=== PATIENT | male | born 1960 | race Caucasian/White ===

== ENCOUNTER 2020-07-21 10:22 | Inpatient (IN) | payer SELFPAY ==
[2020-07-21] VITALS (10 sets, daily range): BP systolic 122–178; BP diastolic 64–86
[~2020-07-21] VITALS: Ht 185.4 cm; Wt 97.0 kg
--- NOTE | 2020-07-21 11:13 | RAD ---
XR CHEST 1V INDICATION: hemoptysis/cough COMPARISON STUDY: None. FINDINGS: Lungs: Normal lung volume. Mild ill-defined right lung opacities. The tracheobronchial tree and hilar structures are normal. Pleura: No pleural effusion or pneumothorax. Heart and Mediastinum: The cardiomediastinal silhouette is normal. The great vessels of the thorax ar e normal. Bones and Soft Tissues: The bones and soft tissues are within normal limits. IMPRESSION: Mild ill-defined right lung opacities, possibly an infectious/inflammatory process. Electronically signed by: Khang Boyd MD (07/21/2020 11:10 AM) [id number]
[2020-07-21] MEDS ORDERED: AZITHRMYCN 500MG IVPB FOR OMNI 250 ML IV ONE (11:30)
[2020-07-21] MEDS ORDERED: DEXAMETHASONE SOD PHOS 20 MG/5 ML VIAL. IV ONE (11:30)
[2020-07-21] MEDS ORDERED: cefTRIAXone IV Push 1 GM VIAL. IVP ONE (11:30)
[2020-07-21] MEDS ORDERED: IV NORMAL SALINE 1000ML BAG 1,000 ML IV ONE (11:30)
[2020-07-21 11:36] LABS: BASO # 0.1 x10^3/uL (0.0-0.2); BASO % 1 % (0-3); EOS # 0.2 x10^3/uL (0.0-0.7); EOS % 2 % (0-3); HEMATOCRIT 47.2 % (39.0-53.0); LYMPH # 1.4 x10^3/uL (1.0-4.8); LYMPH % 15 % (24-48); MEAN CORPUSCULAR HEMOGLOBIN 31 pg (25-35); MEAN CORPUSCULAR HGB CONC 34 g/dL (31-37); MEAN CORPUSCULAR VOLUME 90 fL (79-100); MONO # 0.7 x10^3/uL (0.0-1.1); MONO % 7 % (0-9); NEUT % 74 % (31-73); PLATELET COUNT 140 x10^3/uL (140-400); RED BLOOD COUNT 5.24 x10^6/uL (4.30-5.70); RED CELL DISTRIBUTION WIDTH 13.2 % (11.5-14.5); WHITE BLOOD COUNT 9.4 x10^3/uL (4.0-11.0)
[2020-07-21 11:47] LABS: CREATININE 1.6 mg/dL (0.7-1.3); GFR 44.5; POTASSIUM 3.8 mmol/L (3.5-5.1)
[2020-07-21 11:55] LABS: ALBUMIN 3.4 g/dL (3.4-5.0); ALBUMIN/GLOBULIN RATIO 0.9 (1.0-1.7); MAGNESIUM 2.4 mg/dL (1.8-2.4); TOTAL BILIRUBIN 0.7 mg/dL (0.2-1.0); TOTAL PROTEIN 7.4 g/dL (6.4-8.2)
[2020-07-21 12:19] LABS: AMPHETAMINE/METHAMPHETAMINE NEG (NEG); BARBITURATES NEG (NEG); BENZODIAZEPINES NEG (NEG); CANNABINOIDS NEG (NEG); COCAINE NEG (NEG); METHADONE NEG (NEG); OPIATES NEG (NEG); PHENCYCLIDINE NEG (NEG)
--- NOTE | 2020-07-21 12:56 | EKG ---
[facility] [address] [place] [address] Test Date: 2020-07-21 Test Time: 10:49:20 Pat Name: DIONNE SANTIAGO Department: Room: Gender: M Senior Graphic Designer: : 1960 Requested By: JOSE FRANCISCO REYNOLDS Order Number: [id number] Reading MD: Measurements Intervals [place] Rate: 93 P: 263 NH: 130 QRS: -1 QRSD: 96 T: 131 QT: 362 QTc: 453 Interpretive Statements SINUS RHYTHM LEFT ATRIAL ABNORMALITY LEFTWARD AXIS QRS(T) CONTOUR ABNORMALITY CONSIDER ANTEROSEPTAL MYOCARDIAL DAMAGE ST & T ABNORMALITY, CONSIDER LATERAL ISCHEMIA OR LEFT VENTRICULAR STRAIN ABNORMAL ECG RI6.02 No previous ECG available for comparison
[2020-07-21] MEDS ORDERED: IOHEXOL 350 MG/ML 100 ML VIAL. IV ONE (13:45)
[2020-07-21] MEDS ORDERED: CONTRAST GIVEN. MC PRN (13:45)
[2020-07-21] MEDS ORDERED: niCARdipine 50 MG in IV NORMAL SALINE 250ML 250 ML IV PRN (13:45)
--- NOTE | 2020-07-21 13:48 | PHYS DOC ---
Past Medical History Past Medical History: No Pertinent History Past Surgical History: Other Additional Past Surgical Histo: L shoulder Smoking Status: Current Every Day Smoker Alcohol Use: Occasionally General Adult EDM: Chief Complaint: COUGH HPI: HPI: 60 yo M who denies any PMH, presents to the ED with complaints of forceful episodes of a dry cough that proceed to shortness of breath and hemoptysis only after he has been coughing multiple times. At rest denies any shortness of breath. Takes no routine medications, on no AC. Has no PCP. Smokes tobacco but has not been formally diagnosed with emphysema. Denies any fever, headache, lethargy, fatigue, sore throat, nausea or vomiting. Requests to be Covid tested "so I can go back to work." Review of Systems: Review of Systems: Constitutional: Denies fever or chills. [] Eyes: Denies change in visual acuity. [] HENT: Denies nasal congestion or sore throat. [] Respiratory: Denies rhinorrhea or sternal retractions Cardiovascular: Denies chest pain or edema. [] GI: Denies abdominal pain, nausea, vomiting, bloody stools or diarrhea. [] : Denies dysuria. [] Musculoskeletal: Denies back pain or joint pain. [] Integument: Denies rash. [] Neurologic: Denies headache, focal weakness or sensory changes. [] Endocrine: Denies polyuria or polydipsia. [] Lymphatic: Denies swollen glands. [] Psychiatric: Denies depression or anxiety. [] Heart Score: Risk Factors: Risk Factors: DM, Current or recent (<one month) smoker, HTN, HLP, family history of CAD, obesity. Risk Scores: Score 0 - 3: 2.5% MACE over next 6 weeks - Discharge Home Score 4 - 6: 20.3% MACE over next 6 weeks - Admit for Clinical Observation Score 7 - 10: 72.7% MACE over next 6 weeks - Early Invasive Strategies Current Medications: Current Medications Medications (Trade) Dose Ordered Sig/Marry Start Time Stop Time Status Last Admin Dose Admin Azithromycin 250 ml @ 250 mls/hr 1X ONCE 07/21/20 11:30 07/21/20 12:29 DC 07/21/20 11:54 250 MLS/HR Ceftriaxone Sodium (Rocephin) 1 gm 1X ONCE 07/21/20 11:30 07/21/20 11:34 DC 07/21/20 11:47 1 GM Dexamethasone Sodium Phosphate (Decadron) 10 mg 1X ONCE 07/21/20 11:30 07/21/20 11:34 DC 07/21/20 11:47 10 MG Info (CONTRAST GIVEN -- Rx MONITORING) 1 each PRN DAILY PRN 07/21/20 13:45 07/23/20 13:44 Iohexol (Omnipaque 350 Mg/ml) 80 ml 1X ONCE 07/21/20 13:45 07/21/20 13:46 Nicardipine HCl 50 mg/Sodium Chloride 250 ml @ 12.5 mls/hr CONT PRN 07/21/20 13:45 07/22/20 13:44 Sodium Chloride 1,000 ml @ 1,000 mls/hr 1X ONCE 07/21/20 11:30 07/21/20 12:29 DC 07/21/20 11:47 1,000 MLS/HR Allergies: Allergies: Allergies Coded Allergies Type Severity Reaction Last Updated Verified No Known Drug Allergies 07/21/20 No Physical Exam: PE: Constitutional: Well developed, well nourished, no acute distress, non-toxic appearance, hypertensive HENT: Normocephalic, atraumatic, Eyes: EOMI, conjunctiva normal, no discharge. Neck: Normal range of motion, supple, Cardiovascular: S1/2 present, regular rhythm Lungs & Thorax: Speaking in full sentences, bilateral equal chest rise, no tachypnea or increased work of breathing, no wheezing/rales/crackles, clear lungs auscultated bilaterally Abdomen: soft, no tenderness, Skin: Warm, dry, no erythema, no rash. [] Extremities: No tenderness, no cyanosis, no lower extremity edema Neurologic: Alert and oriented X 3, normal motor function, normal sensory function, no focal deficits noted. [] Psychologic: Affect normal, judgement normal, mood normal. [] Current Patient Data: Labs: Laboratory Tests Test 07/21/20 11:21 07/21/20 12:00 White Blood Count 9.4 x10^3/uL (4.0-11.0) Red Blood Count 5.24 x10^6/uL (4.30-5.70) Hemoglobin 16.0 g/dL (13.0-17.5) Hematocrit 47.2 % (39.0-53.0) Mean Corpuscular Volume 90 fL (79-100) Mean Corpuscular Hemoglobin 31 pg (25-35) Mean Corpuscular Hemoglobin Concent 34 g/dL (31-37) Red Cell Distribution Width 13.2 % (11.5-14.5) Platelet Count 140 x10^3/uL (140-400) Neutrophils (%) (Auto) 74 % (31-73) H Lymphocytes (%) (Auto) 15 % (24-48) L Monocytes (%) (Auto) 7 % (0-9) Eosinophils (%) (Auto) 2 % (0-3) Basophils (%) (Auto) 1 % (0-3) Neutrophils # (Auto) 7.0 x10^3/uL (1.8-7.7) Lymphocytes # (Auto) 1.4 x10^3/uL (1.0-4.8) Monocytes # (Auto) 0.7 x10^3/uL (0.0-1.1) Eosinophils # (Auto) 0.2 x10^3/uL (0.0-0.7) Basophils # (Auto) 0.1 x10^3/uL (0.0-0.2) D-Dimer (Pretty) 0.53 ug/mlFEU (0.00-0.50) H Sodium Level 138 mmol/L (136-145) Potassium Level 3.8 mmol/L (3.5-5.1) Chloride Level 103 mmol/L (98-107) Carbon Dioxide Level 25 mmol/L (21-32) Anion Gap 10 (6-14) Blood Urea Nitrogen 14 mg/dL (8-26) Creatinine 1.6 mg/dL (0.7-1.3) H Estimated GFR (Cockcroft-Gault) 44.5 BUN/Creatinine Ratio 9 (6-20) Glucose Level 131 mg/dL (70-99) H Lactic Acid Level 1.0 mmol/L (0.4-2.0) Calcium Level 9.0 mg/dL (8.5-10.1) Magnesium Level 2.4 mg/dL (1.8-2.4) Total Bilirubin 0.7 mg/dL (0.2-1.0) Aspartate Amino Transferase (AST) 14 U/L (15-37) L Alanine Aminotransferase (ALT) 20 U/L (16-63) Alkaline Phosphatase 101 U/L (46-116) Troponin I Quantitative 0.024 ng/mL (0.000-0.055) Total Protein 7.4 g/dL (6.4-8.2) Albumin 3.4 g/dL (3.4-5.0) Albumin/Globulin Ratio 0.9 (1.0-1.7) L Urine Opiates Screen Neg (NEG) Urine Methadone Screen Neg (NEG) Urine Barbiturates Neg (NEG) Urine Phencyclidine Screen Neg (NEG) Urine Amphetamine/Methamphetamine Neg (NEG) Urine Benzodiazepines Screen Neg (NEG) Urine Cocaine Screen Neg (NEG) Urine Cannabinoids Screen Neg (NEG) Urine Ethyl Alcohol Neg (NEG) Laboratory Tests 07/21/20 11:21 Laboratory Tests 07/21/20 11:21 Vital Signs: Vital Signs Date Time Temp Pulse Resp B/P (MAP) Pulse Ox O2 Delivery O2 Flow Rate FiO2 07/21/20 12:40 94 24 168/114 (132) 95 Room Air 07/21/20 10:25 97.9 97.9 EKG: EKG: Sinus rhythm 93 bpm, left axis deviation, T wave inversion 1 and aVL, normal intervals, no ST elevations or ST depressions Radiology/Procedures: Radiology/Procedures: IMAGING REPORT Signed PATIENT: DIONNE SANTIAGO ACCOUNT: [id number] : 1960 LOCATION: ER AGE: 60 SEX: M EXAM STATUS: PRE ER ORD. PHYSICIAN: MARISOL REYNOLDS DO REASON: hemoptysis/cough PROCEDURE: PORTABLE CHEST 1V XR CHEST 1V INDICATION: hemoptysis/cough COMPARISON STUDY: None. FINDINGS: Lungs: Normal lung volume. Mild ill-defined right lung opacities. The tracheobronchial tree and hilar structures are normal. Pleura: No pleural effusion or pneumothorax. Heart and Mediastinum: The cardiomediastinal silhouette is normal. The great vessels of the thorax are normal. Bones and Soft Tissues: The bones and soft tissues are within normal limits. IMPRESSION: Mild ill-defined right lung opacities, possibly an infectious/inflammatory process. Electronically signed by: Gavin Boyd MD (07/21/2020 11:10 AM) [id number] DICTATED and SIGNED BY: GAVIN BOYD MD DATE: 07/21/20 [id number] IMAGING REPORT Signed PATIENT: DIONNE SANTIAGO ACCOUNT: [id number] : 1960 LOCATION: ER AGE: 60 SEX: M EXAM STATUS: REG ER ORD. PHYSICIAN: MARISOL REYNOLDS DO REASON: Cough, SOA, R/O PE PROCEDURE: CT ANGIOGRAPHY CHEST CTA CHEST INDICATION: Cough, SOA, R/O PE Comparison: Radiograph 07/21/2020. TECHNIQUE: Following the uneventful administration of intravenous contrast, 80 cc Omnipaque 350, axial CT sections were obtained through the lungs and upper abdomen. Multiplanar reconstructions and MIP images were obtained. PQRS compliance statement: One or more of the following individualized dose reduction techniques were utilized for this examination: 1. Automated exposure control 2. Adjustment of the mA and/or kV according to patient size 3. Use of iterative reconstruction technique FINDINGS: Pulmonary arteries: No evidence of pulmonary thromboembolic disease. Dilated pulmonary trunk measures 36 mm, which can be seen with pulmonary hypertension. Lungs and Airways: Mild ill-defined ground glass opacities. Right lower lobe 12 x 11 mm nodule with fat attenuation. Bilateral interlobular septal thickening. Calcified pulmonary granulomas. Bronchial wall thickening. Pleura: The pleural spaces are normal. Heart and Mediastinum: The visualized thyroid is normal in size and attenuation. No axillary or supraclavicular lymphadenopathy. Few conspicuous mediastinal and hilar lymph nodes. Cardiomegaly. No pericardial effusion. Coronary artery atherosclerotic disease. The great vessels of the thorax are normal. Abdomen: Limited images through the upper abdomen show no abnormality of the visualized organs. Bones and Soft Tissues: Degenerative changes of the spine. IMPRESSION: 1. No evidence of pulmonary thromboembolic disease. 2. Bilateral interlobular septal thickening and mild ill-defined across opacities, likely interstitial edema. 3. Dilated pulmonary trunk, which can be seen with pulmonary hypertension. 4. Right lower lobe 12 mm nodule has areas of fat attenuation, suggestive of a pulmonary hamartoma. Recommend comparison with prior imaging if available, or three-month follow-up CT to assess stability. 5. Coronary artery atherosclerotic disease. Electronically signed by: Gavin Boyd MD (07/21/2020 2:11 PM) [id number] DICTATED and SIGNED BY: GAVIN BOYD MD DATE: 07/21/20 [id number] Course & Med Decision Making: Course & Med Decision Making Pertinent Labs and Imaging studies reviewed. (See chart for details) COVID-19 CRITERIA: The patient was evaluated during the global COVID-19 pandemic, and that diagnosis was suspected/considered upon their initial presentation. Their evaluation, treatment and testing was consistent with current guidelines for patients who present with complaints or symptoms that may be related to COVID-19. Concern for symptomatic hypertension and renal insufficiency, creatinine is 1.6 with no prior for comparison. Started on nicardipine drip -requires ICU. CTA of the chest consistent with groundglass opacities. Covid test pending. CTA of the chest showing pulmonary hypertension. Patient requiring nasal cannula. Patient stable at time of admission and agrees with this plan. I have spoken with the patient and/or caregivers. I have explained the patient's condition, diagnosis and treatment plan based on the information av ailable to me at this time. I have answered the patient's and/or caregivers questions and answered any concerns. The patient and/or caregivers have as good an understanding of the patient's diagnosis, condition and treatment plan as can be expected at this point. The patient has been stabilized within the capability of the emergency department. The patient will be transported for further care and management or will be moved to an observation or inpatient service. I have communicated with the staff or medical practitioner taking over this patient's care. Critical Care: Authorized and Performed by: Marisol Reynolds DO Total critical care time: approximately 60 minutes Due to a high probability of clinically significant, life threatening deterioration, the patient required my highest level of preparedness to intervene emergently and I personally spent this critical care time directly and personally managing the patient. This critical care time included obtaining a history; examining the patient; pulse oximetry; ventilator management if necessary; ordering and review of studies; arranging urgent treatment with development of a management plan; evaluation of patient's response to treatment; frequent reassessment; discussion with patient/family; and, discussions with other providers. This critical care time was performed to assess and manage the high probability of imminent, life-threatening deterioration that could result in multi-organ failure. It was exclusive of separately billable procedures and treating other patients and teaching time. Please see MDM section and the rest of the note for further information on patient assessment and treatment. Devaughn Disclaimer: Devaughn Disclaimer: This electronic medical record was generated, in whole or in part, using a voice recognition dictation system. Departure Departure Impression: Primary Impression: Uncontrolled hypertension Additional Impressions: Renal insufficiency Person under investigation for COVID-19 Disposition: ADMITTED INPT THIS HOSP Admitting Physician: ZEKE (Dr. Arroyo) Condition: CRITICAL Referrals: NO PCP (PCP) MARISOL REYNOLDS DO Jul 21, 2020 13:47
[2020-07-21] MEDS ORDERED: ONDANSETRON PF 4 MG/2 ML VIAL. IV PRN (14:00)
--- NOTE | 2020-07-21 14:13 | RAD ---
CTA CHEST INDICATION: Cough, SOA, R/O PE Comparison: Radiograph 07/21/2020. TECHNIQUE: Following the uneventful administration of intravenous contrast, 80 cc Omnipaque 350, axia l CT sections were obtained through the lungs and upper abdomen. Multiplanar reconstructions and MIP images were obtained. PQRS compliance statement: One or more of the following individualized dose reduction techniques were utilized for this examinat ion: 1. Automated exposure control 2. Adjustment of the mA and/or kV according to patient size 3. Use of iterative reconstruction technique FINDINGS: Pulmonary arteries: No evidence of pulmonary thromboembolic disease. Dilated pulmonary trunk measures 36 mm, which can be seen with pulmonary hypertension. Lungs and Airways: Mild ill-defined ground glass opacities. Right lower lobe 12 x 11 mm nodule with f at attenuation. Bilateral interlobular septal thickening. Calcified pulmonary granulomas. Bronchial w all thickening. Pleura: The pleural spaces are normal. Heart and Mediastinum: The visualized thyroid is normal in size and attenuation. No axillary or supra clavicular lymphadenopathy. Few conspicuous mediastinal and hilar lymph nodes. Cardiomegaly. No peric ardial effusion. Coronary artery atherosclerotic disease. The great vessels of the thorax are normal. Abdomen: Limited images through the upper abdomen show no abnormality of the visualized organs. Bones and Soft Tissues: Degenerative changes of the spine. IMPRESSION: 1. No evidence of pulmonary thromboembolic disease. 2. Bilateral interlobular septal thickening and mild ill-defined across opacities, likely interstitia l edema. 3. Dilated pulmonary trunk, which can be seen with pulmonary hypertension. 4. Right lower lobe 12 mm nodule has areas of fat attenuation, suggestive of a pulmonary hamartoma. R ecommend comparison with prior imaging if available, or three-month follow-up CT to assess stability. 5. Coronary artery atherosclerotic disease. Electronically signed by: Khang Boyd MD (07/21/2020 2:11 PM) [id number]
--- NOTE | 2020-07-21 14:23 | HP ---
ADMIT DATE: 07/21/2020 CHIEF COMPLAINT: Elevated blood pressures, cough and shortness of breath. HISTORY OF PRESENT ILLNESS: The patient is a pleasant middle-aged male, who presented with elevated blood pressure. Pressures run at 191/123. He also has a bump in his creatinine to 1.6. He has a shortness of breath and cough. I discussed the case with ER physician. We are going to admit the patient and get his pressures down and checking for COVID-19. PAST MEDICAL HISTORY: Noncompliance and hypertension. ALLERGIES: None. FAMILY HISTORY: Diabetes. SOCIAL HISTORY: He works, does not do drugs. MEDICATIONS: Reviewed, please for the MRAD. REVIEW OF SYSTEMS: GENERAL: He complains of elevated blood pressure. SKIN: No bruising, hair changes or rashes. EYES: No blurred, double or loss of vision. NOSE AND THROAT: No history of nosebleeds, hoarseness or sore throat. HEART: No history of palpitations, chest pain or shortness of breath on exertion. LUNGS: He complaints of shortness of breath and cough. GASTROINTESTINAL: Denies changes in appetite, nausea, vomiting, diarrhea or constipation. GENITOURINARY: No history of frequency, urgency, hesitancy or nocturia. NEUROLOGIC: Denies history of numbness, tingling, tremor or weakness. PSYCHIATRIC: No history of panic, anxiety or depression. ENDOCRINE: No history of heat or cold intolerance, polyuria or polydipsia. EXTREMITIES: Denies muscle weakness, joint pain, pain on walking or stiffness. PHYSICAL EXAMINATION: VITAL SIGNS: Temperature 97.9, pulse 93, respirations 24, blood pressure 191/123, O2 sat 96% on room air. GENERAL: No apparent distress. Alert and oriented. HEENT: Normal cephalic atraumatic, external auditory canals are patent EYES: Extraocular muscles are intact, pupils are equally round and reactive to light and accommodation MUSCULOSKELETAL: Well developed, well nourished, good range of motion ENDOCRINE: No thyromegaly was palpated LYMPHATICS: No cervical chain or axillary nodes were noted HEMATOPOIETIC: No bruising NECK: Supple, no JVD, no thyromegaly was noted. LUNGS: Clear to auscultation in all lung bunch without rhonchi or wheezing. HEART: RRR, S1, S2 present. Peripheral pulses intact, no obvious murmurs were noted. ABDOMEN: Soft, nontender. Positive bowel sounds no organomegaly, normal bowel sounds. EXTREMITIES: Without any cyanosis, clubbing, or edema. Pedal pulses intact, Homans sign is negative. NEUROLOGIC: Normal speech, normal tone. A & O x3, moves all extremities, no obvious focal deficits. PSYCHIATRIC: Normal affect, normal mood. Stable. SKIN: No ulcerations or rashes, good skin turgor, no jaundice. VASCULAR: Good capillary refill, neurovascular bundle appears to be intact. LABORATORY DATA: White count is 9.4. Chest x-ray shows mild ill-defined right lung opacities, possibly infection. ASSESSMENT AND PLAN: Hypertensive emergency, acute renal failure, abnormal chest x-ray. The patient has been admitted. We will checking for COVID-19. We are going to use Cardene drip to get his pressures down. CT angiography of the chest to rule out PE. IV fluids, IV azithromycin, IV ceftriaxone, swab him for COVID-19. Trend labs, cardiac monitoring. CHIQUI GOMES DO DR: FITZ/jeanine JOB#: [id number] / [id number]
[2020-07-21] MEDS: METOPROLOL TART IMMED RELEASE 25 MG TABLET. PO SCH (17:42)
[2020-07-22] VITALS (11 sets, daily range): BP systolic 122–152; BP diastolic 76–99
[2020-07-22] MEDS: METOPROLOL TART IMMED RELEASE 25 MG TABLET. PO SCH (08:26)
--- NOTE | 2020-07-22 08:40 | PDOC ---
[employer] PROGRESS NOTE Date of Service DOS: DATE: 07/22/20 TIME: 08:40 Chief Complaint Chief Complaint A/P: HTN emergency Pulmonary hamartoma Shortness of breath REBA - vasomotor nephropathy History of Present Illness History of Present Illness Mr Holman is a 60yo M with no known PMHx who presented with elevated blood pressure. Pressures run at 191/123. He also has a bump in his creatinine to 1. 6. He has a shortness of breath and cough. I discussed the case with ER physician. We are going to admit the patient and get his pressures down and checking for COVID-19. Dust x-ray appeared to have a ill-defined right lower lobe infiltrate or mass. CTPA performed negative for PE but did note likely hamartoma in the right lower lobe. After dose of Rocephin and azithromycin and IV Cardene he improved significantly and is asking to go home. Transition to metoprolol and amlodipine with excellent control of blood pressure 141/89 will go home on antihypertensives doxycycline has outpatient follow-up. Vitals/I&O Vitals/I&O: Vital Signs Date Time Temp Pulse Resp B/P (MAP) Pulse Ox O2 Delivery O2 Flow Rate FiO2 07/22/20 08:31 Room Air 07/22/20 08:26 71 143/91 07/22/20 08:06 98.0 16 97 98.0 07/22/20 04:00 2.0 I & O 07/21/20 07/21/20 07/22/20 15:00 23:00 07:00 Intake Total 1250 ml 1000 ml 1661 ml Output Total 650 ml 700 ml Balance 600 ml 300 ml 1661 ml Physical Exam General: Alert, Oriented X3, Cooperative Heart: Regular rate, Normal S1, Normal S2 Lungs: Clear Abdomen: Normal bowel sounds, Soft Extremities: No clubbing, No cyanosis Skin: No rashes, No breakdown Labs Labs: Laboratory Tests Test 07/21/20 11:21 07/21/20 12:00 07/21/20 14:30 07/21/20 19:45 White Blood Count 9.4 x10^3/uL (4.0-11.0) Red Blood Count 5.24 x10^6/uL (4.30-5.70) Hemoglobin 16.0 g/dL (13.0-17.5) Hematocrit 47.2 % (39.0-53.0) Mean Corpuscular Volume 90 fL (79-100) Mean Corpuscular Hemoglobin 31 pg (25-35) Mean Corpuscular Hemoglobin Concent 34 g/dL (31-37) Red Cell Distribution Width 13.2 % (11.5-14.5) Platelet Count 140 x10^3/uL (140-400) Neutrophils (%) (Auto) 74 % (31-73) Lymphocytes (%) (Auto) 15 % (24-48) Monocytes (%) (Auto) 7 % (0-9) Eosinophils (%) (Auto) 2 % (0-3) Basophils (%) (Auto) 1 % (0-3) Neutrophils # (Auto) 7.0 x10^3/uL (1.8-7.7) Lymphocytes # (Auto) 1.4 x10^3/uL (1.0-4.8) Monocytes # (Auto) 0.7 x10^3/uL (0.0-1.1) Eosinophils # (Auto) 0.2 x10^3/uL (0.0-0.7) Basophils # (Auto) 0.1 x10^3/uL (0.0-0.2) D-Dimer (Pretty) 0.53 ug/mlFEU (0.00-0.50) Sodium Level 138 mmol/L (136-145) Potassium Level 3.8 mmol/L (3.5-5.1) Chloride Level 103 mmol/L (98-107) Carbon Dioxide Level 25 mmol/L (21-32) Anion Gap 10 (6-14) Blood Urea Nitrogen 14 mg/dL (8-26) Creatinine 1.6 mg/dL (0.7-1.3) Estimated GFR (Cockcroft-Gault) 44.5 BUN/Creatinine Ratio 9 (6-20) Glucose Level 131 mg/dL (70-99) Lactic Acid Level 1.0 mmol/L (0.4-2.0) Calcium Level 9.0 mg/dL (8.5-10.1) Magnesium Level 2.4 mg/dL (1.8-2.4) Total Bilirubin 0.7 mg/dL (0.2-1.0) Aspartate Amino Transf (AST/SGOT) 14 U/L (15-37) Alanine Aminotransferase (ALT/SGPT) 20 U/L (16-63) Alkaline Phosphatase 101 U/L (46-116) Troponin I Quantitative 0.024 ng/mL (0.000-0.055) < 0.017 ng/mL (0.000-0.055) 0.017 ng/mL (0.000-0.055) Total Protein 7.4 g/dL (6.4-8.2) Albumin 3.4 g/dL (3.4-5.0) Albumin/Globulin Ratio 0.9 (1.0-1.7) Urine Opiates Screen Neg (NEG) Urine Methadone Screen Neg (NEG) Urine Barbiturates Neg (NEG) Urine Phencyclidine Screen Neg (NEG) Urine Amphetamine/Methamphetamine Neg (NEG) Urine Benzodiazepines Screen Neg (NEG) Urine Cocaine Screen Neg (NEG) Urine Cannabinoids Screen Neg (NEG) Urine Ethyl Alcohol Neg (NEG) Assessment and Plan Assessmemt and Plan Problems Medical Problems: (1) Person under investigation for COVID-19 Status: Acute (2) Renal insufficiency Status: Acute (3) Uncontrolled hypertension Status: Acute Comment Review of Relevant I have reviewed the following items maximino (where applicable) has been applied. Medications: Current Medications Medications (Trade) Dose Ordered Sig/Marry Route PRN Reason Start Time Stop Time Status Last Admin Dose Admin Sodium Chloride 1,000 ml @ 1,000 mls/hr 1X ONCE IV 07/21/20 11:30 07/21/20 12:29 DC 07/21/20 11:47 Ceftriaxone Sodium (Rocephin) 1 gm 1X ONCE IVP 07/21/20 11:30 07/21/20 11:34 DC 07/21/20 11:47 Azithromycin 250 ml @ 250 mls/hr 1X ONCE IV 07/21/20 11:30 07/21/20 12:29 DC 07/21/20 11:54 Dexamethasone Sodium Phosphate (Decadron) 10 mg 1X ONCE IV 07/21/20 11:30 07/21/20 11:34 DC 07/21/20 11:47 Iohexol (Omnipaque 350 Mg/ml) 80 ml 1X ONCE IV 07/21/20 13:45 07/21/20 13:46 DC 07/21/20 13:52 Nicardipine HCl 50 mg/Sodium Chloride 250 ml @ 12.5 mls/hr CONT PRN IV SEE I/O RECORD 07/21/20 13:45 07/21/20 17:12 DC 07/21/20 13:45 Amlodipine Besylate (Norvasc) 10 mg DAILY PO 07/21/20 18:00 07/22/20 08:25 Metoprolol Tartrate (Lopressor) 25 mg BID PO 07/21/20 18:00 07/22/20 08:26 Justifications for Admission Other Justification JUAN R PADRON MD Jul 22, 2020 08:40
--- NOTE | 2020-07-22 09:47 | NUR ---
SS following for discharge planning. SS reviewed pt chart and discussed with RN. Pt is from home and is currently on room air. Self pay. Pt wanting to return to home. Possible discharge to home today. SS will continue to follow for discharge planning.
[2020-07-22] MEDS ORDERED: AMLO-187 PO (10:26)
[2020-07-22] MEDS ORDERED: METO25TA4 PO (10:26)
[2020-07-22] MEDS ORDERED: DOXY100T PO (10:34)
--- NOTE | 2020-07-22 10:35 | PDOC3 ---
Discharge Summary Visit Information Date of Admission: Jul 21, 2020 Date of Discharge: Jul 22, 2020 Admitting Diagnosis: Shortness of breath Final Diagnosis Problems Medical Problems: (1) Person under investigation for COVID-19 Status: Acute (2) Renal insufficiency Status: Acute (3) Uncontrolled hypertension Status: Acute Brief Hospital Course Allergies Allergies Coded Allergies Type Severity Reaction Last Updated Verified No Known Drug Allergies 07/21/20 No Vital Signs Vital Signs Date Time Temp Pulse Resp B/P (MAP) Pulse Ox O2 Delivery O2 Flow Rate FiO2 07/22/20 10:04 62 16 141/99 (113) 93 Room Air 07/22/20 08:06 98.0 98.0 07/22/20 04:00 2.0 Lab Results Laboratory Tests Test 07/21/20 11:21 07/21/20 12:00 07/21/20 14:30 07/21/20 19:45 White Blood Count 9.4 x10^3/uL (4.0-11.0) Red Blood Count 5.24 x10^6/uL (4.30-5.70) Hemoglobin 16.0 g/dL (13.0-17.5) Hematocrit 47.2 % (39.0-53.0) Mean Corpuscular Volume 90 fL (79-100) Mean Corpuscular Hemoglobin 31 pg (25-35) Mean Corpuscular Hemoglobin Concent 34 g/dL (31-37) Red Cell Distribution Width 13.2 % (11.5-14.5) Platelet Count 140 x10^3/uL (140-400) Neutrophils (%) (Auto) 74 % (31-73) Lymphocytes (%) (Auto) 15 % (24-48) Monocytes (%) (Auto) 7 % (0-9) Eosinophils (%) (Auto) 2 % (0-3) Basophils (%) (Auto) 1 % (0-3) Neutrophils # (Auto) 7.0 x10^3/uL (1.8-7.7) Lymphocytes # (Auto) 1.4 x10^3/uL (1.0-4.8) Monocytes # (Auto) 0.7 x10^3/uL (0.0-1.1) Eosinophils # (Auto) 0.2 x10^3/uL (0.0-0.7) Basophils # (Auto) 0.1 x10^3/uL (0.0-0.2) D-Dimer (Pretty) 0.53 ug/mlFEU (0.00-0.50) Sodium Level 138 mmol/L (136-145) Potassium Level 3.8 mmol/L (3.5-5.1) Chloride Level 103 mmol/L (98-107) Carbon Dioxide Level 25 mmol/L (21-32) Anion Gap 10 (6-14) Blood Urea Nitrogen 14 mg/dL (8-26) Creatinine 1.6 mg/dL (0.7-1.3) Estimated GFR (Cockcroft-Gault) 44.5 BUN/Creatinine Ratio 9 (6-20) Glucose Level 131 mg/dL (70-99) Lactic Acid Level 1.0 mmol/L (0.4-2.0) Calcium Level 9.0 mg/dL (8.5-10.1) Magnesium Level 2.4 mg/dL (1.8-2.4) Total Bilirubin 0.7 mg/dL (0.2-1.0) Aspartate Amino Transf (AST/SGOT) 14 U/L (15-37) Alanine Aminotransferase (ALT/SGPT) 20 U/L (16-63) Alkaline Phosphatase 101 U/L (46-116) Troponin I Quantitative 0.024 ng/mL (0.000-0.055) < 0.017 ng/mL (0.000-0.055) 0.017 ng/mL (0.000-0.055) Total Protein 7.4 g/dL (6.4-8.2) Albumin 3.4 g/dL (3.4-5.0) Albumin/Globulin Ratio 0.9 (1.0-1.7) Urine Opiates Screen Neg (NEG) Urine Methadone Screen Neg (NEG) Urine Barbiturates Neg (NEG) Urine Phencyclidine Screen Neg (NEG) Urine Amphetamine/Methamphetamine Neg (NEG) Urine Benzodiazepines Screen Neg (NEG) Urine Cocaine Screen Neg (NEG) Urine Cannabinoids Screen Neg (NEG) Urine Ethyl Alcohol Neg (NEG) Laboratory Tests Test 07/21/20 11:21 07/21/20 12:00 07/21/20 14:30 07/21/20 19:45 White Blood Count 9.4 x10^3/uL (4.0-11.0) Red Blood Count 5.24 x10^6/uL (4.30-5.70) Hemoglobin 16.0 g/dL (13.0-17.5) Hematocrit 47.2 % (39.0-53.0) Mean Corpuscular Volume 90 fL (79-100) Mean Corpuscular Hemoglobin 31 pg (25-35) Mean Corpuscular Hemoglobin Concent 34 g/dL (31-37) Red Cell Distribution Width 13.2 % (11.5-14.5) Platelet Count 140 x10^3/uL (140-400) Neutrophils (%) (Auto) 74 % (31-73) Lymphocytes (%) (Auto) 15 % (24-48) Monocytes (%) (Auto) 7 % (0-9) Eosinophils (%) (Auto) 2 % (0-3) Basophils (%) (Auto) 1 % (0-3) Neutrophils # (Auto) 7.0 x10^3/uL (1.8-7.7) Lymphocytes # (Auto) 1.4 x10^3/uL (1.0-4.8) Monocytes # (Auto) 0.7 x10^3/uL (0.0-1.1) Eosinophils # (Auto) 0.2 x10^3/uL (0.0-0.7) Basophils # (Auto) 0.1 x10^3/uL (0.0-0.2) D-Dimer (Pretty) 0.53 ug/mlFEU (0.00-0.50) Sodium Level 138 mmol/L (136-145) Potassium Level 3.8 mmol/L (3.5-5.1) Chloride Level 103 mmol/L (98-107) Carbon Dioxide Level 25 mmol/L (21-32) Anion Gap 10 (6-14) Blood Urea Nitrogen 14 mg/dL (8-26) Creatinine 1.6 mg/dL (0.7-1.3) Estimated GFR (Cockcroft-Gault) 44.5 BUN/Creatinine Ratio 9 (6-20) Glucose Level 131 mg/dL (70-99) Lactic Acid Level 1.0 mmol/L (0.4-2.0) Calcium Level 9.0 mg/dL (8.5-10.1) Magnesium Level 2.4 mg/dL (1.8-2.4) Total Bilirubin 0.7 mg/dL (0.2-1.0) Aspartate Amino Transf (AST/SGOT) 14 U/L (15-37) Alanine Aminotransferase (ALT/SGPT) 20 U/L (16-63) Alkaline Phosphatase 101 U/L (46-116) Troponin I Quantitative 0.024 ng/mL (0.000-0.055) < 0.017 ng/mL (0.000-0.055) 0.017 ng/mL (0.000-0.055) Total Protein 7.4 g/dL (6.4-8.2) Albumin 3.4 g/dL (3.4-5.0) Albumin/Globulin Ratio 0.9 (1.0-1.7) Urine Opiates Screen Neg (NEG) Urine Methadone Screen Neg (NEG) Urine Barbiturates Neg (NEG) Urine Phencyclidine Screen Neg (NEG) Urine Amphetamine/Methamphetamine Neg (NEG) Urine Benzodiazepines Screen Neg (NEG) Urine Cocaine Screen Neg (NEG) Urine Cannabinoids Screen Neg (NEG) Urine Ethyl Alcohol Neg (NEG) Brief Hospital Course Mr Holman is a 60yo M with no known PMHx who presented with elevated blood pressure. Pressures run at 191/123. He also has a bump in his creatinine to 1.6. He has a shortness of breath and cough. I discussed the case with ER physician. We are going to admit the patient and get his pressures down and checking for COVID-19. Dust x-ray appeared to have a ill-defined right lower lobe infiltrate or mass. CTPA performed negative for PE but did note likely hamartoma in the right lower lobe. After dose of Rocephin and azithromycin and IV Cardene he improved significantly and is asking to go home. Transition to metoprolol and amlodipine with excellent control of blood pressure 141/89 will go home on antihypertensives doxycycline has outpatient follow-up. Problem list: HTN emergency Pulmonary hamartoma Shortness of breath - bronchitis and HTN emergency REBA - vasomotor nephropathy Greater than 30 minutes spent on d/c home with self care Discharge Information Condition at Discharge: Improved Follow Up: Weeks (1) Disposition/Orders: D/C to Home Scheduled Amlodipine Besylate (Amlodipine Besylate) 10 Mg Tablet, 10 MG PO DAILY for HTN for 30 Days, #30 Ref 4 Prescribed by: JUAN R PADRON MD on 07/22/20 1026 Doxycycline Hyclate (Doxycycline Hyclate) 100 Mg Tablet, 1 TAB PO BID for Bronchitis for 5 Days, #10 Prescribed by: JUAN R PADRON MD on 07/22/20 1034 Metoprolol Tartrate (Metoprolol Tartrate) 25 Mg Tablet, 25 MG PO BID for HTN for 30 Days, #60 Ref 4 Prescribed by: JUAN R PADRON MD on 07/22/20 1026 Justicifation of Admission Dx: Justifications for Admission: Justification of Admission Dx: Yes JUAN R PADRON MD Jul 22, 2020 10:35
--- NOTE | 2020-07-22 11:45 | NUR ---
Discharge Note: [facility] Discharge instructions and discharge home medications reviewed with Patient and a copy given. All questions have been answered and understanding verbalized. The following instructions and handouts were given: Follow up with Primary Care Provider with 2 weeks. Education pertaining to HTN, metoprolol and amlodipine were discussed and given to patient. Discontinued lines and drains: 18g L AC and wrist was removed with tip intact. Patient discharged to home with self care. Patient drove himself from [facility] facility.
--- NOTE | 2020-07-22 17:47 | NUR ---
Called patient's home Number [phone] to inform him his COVID test was negative. Could not leave message on voice mail due to it was full.
== END 2020-07-22 11:51 | disposition home or self-care (01) | DRG 304 ==
LOC: ER 10:22 → 1 WEST ICU 15:02
PROVIDERS: ADMIT Internal Medicine; ATTEND Internal Medicine
DX: I16.1 Hypertensive emergency (principal); N17.0 Acute kidney failure with tubular necrosis; Q85.9 Phakomatosis, unspecified; R04.2 Hemoptysis; Z20.822 Contact with and (suspected) exposure to COVID-19; I10 Essential (primary) hypertension; I25.10 Atherosclerotic heart disease of native coronary artery without angina pectoris; J40 Bronchitis, not specified as acute or chronic; Z83.3 Family history of diabetes mellitus; Z87.891 Personal history of nicotine dependence; Z91.19 Patient's noncompliance with other medical treatment and regimen
CPT/HCPCS: 36415; 71045; 71275; 80053; 80307; 83605; 83735; 84484; 85025; 85379; 87040; 93005; 96365; 96366; 96368; 96375; J0456; J0696; J1100; J3490; J7030; J7050; Q9967; U0003; 99285-25; G0378